=== PATIENT | female | born 1960 | race Caucasian/White ===

== ENCOUNTER 2016-06-21 10:37 | Day surgery (SDC) | payer BC ==
--- NOTE | ~2016-06-21 | EGD ---
EGD REPORT [facility] [address] [place] [address] NAME: IRIS GARCIA : [birth year] [place]US : [place] [facility] [place] [id number] AGE: 56 ADM/REG DATE : 06/21/16 MR#: [id number] REPORT SERV DATE: 06/21/16 DICTATED BY: STEPHANIE BOLANOS DATE: 06/21/16 REPORT STATUS : Draft [facility] DATE: 06/21/16 Endoscopy Center Patient Name: Iris Garcia Date of : 1960 Attending MD: EMMANUEL BOLANOS MD Procedure Date No Time: 06/21/2016 Procedure: Colonoscopy Indications: Iron deficiency anemia Referring MD: DIRK BELL JR. Medicines: See the Anesthesia note for documentation of the administered medications Complications: No immediate complications. Estimated blood loss: None. Procedure: Pre-Anesthesia Assessment: - ASA Grade Assessment: III - A patient with severe systemic disease. - Prior to the procedure, a History and Physical was performed, and patient medications and allergies were reviewed. The patient's tolerance of previous anesthesia was also reviewed. The risks and benefits of the procedure and the sedation options and risks were discussed with the patient. All questions were answered, and informed consent was obtained. Prior Anticoagulants: The patient has taken no previous anticoagulant or antiplatelet agents. After reviewing the risks and benefits, the patient was deemed in satisfactory condition to undergo the procedure. After I obtained informed consent, the scope was passed under direct vision. Throughout the procedure, the patient's blood pressure, pulse, and oxygen saturations were monitored continuously. The PCF H190L [id number] was introduced through the anus with the intention of advancing to the cecum. The scope was advanced to the splenic flexure before the procedure was aborted. Medications were given. Exam to splenic flexure only due to a poor prep The quality of the bowel preparation was poor. Findings: The perianal and digital rectal examinations were normal. Exam terminated at the splenic flexure due to a poor prep Impression: - Preparation of the colon was poor. - Exam terminated at the splenic flexure due to a poor prep EGD REPORT [address] [place]. [address] NAME: IRIS GARCIA : [birth year] [place]US : [place] [facility] [place]#: [id number] AGE: 56 ADM/REG DATE : 06/21/16 MR#: [id number] REPORT SERV DATE: 06/21/16 DICTATED BY: STEPHANIE BOLANOS DATE: 06/21/16 REPORT STATUS : Draft TRANSCRIBED BY: [employer] DATE: 06/21/16 Recommendation: - Patient has a contact number available for emergencies. The signs and symptoms of potential delayed complications were discussed with the patient. Return to normal activities tomorrow. Written discharge instructions were provided to the patient. - Regular diet. - Discharge patient to home. - Repeat colonoscopy as exam was terminated at the splenic flexure due to a poor prep. Procedure Code(s): --- Professional --- 03026, 53, Colonoscopy, flexible, proximal to splenic flexure; diagnostic, with or without collection of specimen(s) by brushing or washing, with or without colon decompression (separate procedure) Diagnosis Code(s): --- Professional --- D50.9, Iron deficiency anemia, unspecified CPT copyright 2013 [employer]. All rights reserved. The codes documented in this report are preliminary and upon dielectric embossing machine operator review may be revised to meet current compliance requirements. EMMANUEL BOLANOS MD 06/21/2016 12:46 PM This report has been signed electronically. Number of Addenda: 0 Note Initiated On: 06/21/2016 12:18 PM Scope Withdrawal Time 0 hours 0 minutes 0 seconds [address] [id number]
--- NOTE | ~2016-06-21 | EGD ---
EGD REPORT [facility] [address] [place] [address] NAME: IRIS GARCIA : 60 STATUS : [place] [facility] [place]#: [id number] AGE: 56 ADM/REG DATE : 06/21/16 MR#: [id number] REPORT SERV DATE: 06/21/16 DICTATED BY: STEPHANIE BOLANOS DATE: 06/21/16 REPORT STATUS : Draft [facility] DATE: 06/21/16 Endoscopy Center Patient Name: Iris Garcia Date of : 1960 Attending MD: EMMANUEL BOLANOS MD Procedure Date No Time: 06/21/2016 Procedure: Upper GI endoscopy Indications: Iron deficiency anemia, Gastro-esophageal reflux disease Referring MD: DIRK BELL JR. Medicines: See the Anesthesia note for documentation of the administered medications Complications: No immediate complications. Estimated blood loss: None. Procedure: Pre-Anesthesia Assessment: - ASA Grade Assessment: III - A patient with severe systemic disease. - Prior to the procedure, a History and Physical was performed, and patient medications and allergies were reviewed. The patient's tolerance of previous anesthesia was also reviewed. The risks and benefits of the procedure and the sedation options and risks were discussed with the patient. All questions were answered, and informed consent was obtained. Prior Anticoagulants: The patient has taken no previous anticoagulant or antiplatelet agents. After reviewing the risks and benefits, the patient was deemed in satisfactory condition to undergo the procedure. After obtaining informed consent, the endoscope was passed under direct vision. Throughout the procedure, the patient's blood pressure, pulse, and oxygen saturations were monitored continuously. The GIF H190 [id number] was introduced through the mouth, and advanced to the second part of duodenum. The upper GI endoscopy was accomplished without difficulty. The patient tolerated the procedure well. Findings: The examined duodenum was normal. Biopsies were taken with a cold forceps for histology. Diffuse mild inflammation characterized by erythema was found in the gastric antrum. Biopsies were taken with a cold forceps for histology. A 3 cm hiatus hernia was present. No other significant abnormalities were identified in a careful examination of the stomach. The cardia and gastric fundus were normal on retroflexion. The examined esophagus was normal. EGD REPORT [address] [address] NAME: IIRS GARCIA : [birth year] STATUS : [place] [facility] [place]#: [id number] AGE: 56 ADM/REG DATE : 06/21/16 MR#: [id number] REPORT SERV DATE: 06/21/16 DICTATED BY: STEPHANIE BOLANOS DATE: 06/21/16 REPORT STATUS : Draft TRANSCRIBED BY: [employer] DATE: 06/21/16 Impression: - Normal examined duodenum. Biopsied. - Gastritis. Biopsied. - Hiatus hernia. - Normal esophagus. Recommendation: - Patient has a contact number available for emergencies. The signs and symptoms of potential delayed complications were discussed with the patient. Return to normal activities tomorrow. Written discharge instructions were provided to the patient. - Regular diet. - Discharge patient to home. - Continue present medications. - Await pathology results. - Discharge patient to home. Procedure Code(s): --- Professional --- 09443, Esophagogastroduodenoscopy, flexible, transoral; with biopsy, single or multiple Diagnosis Code(s): --- Professional --- K29.70, Gastritis, unspecified, without bleeding K44.9, Diaphragmatic hernia without obstruction or gangrene D50.9, Iron deficiency anemia, unspecified K21.9, Gastro-esophageal reflux disease without esophagitis CPT copyright 2013 [employer]. All rights reserved. The codes documented in this report are preliminary and upon wine specialist review may be revised to meet current compliance requirements. EMMANUEL BOLANOS MD 06/21/2016 12:36 PM This report has been signed electronically. Number of Addenda: 0 Note Initiated On: 06/21/2016 12:22 PM Scope Withdrawal Time 0 hours 0 minutes 0 seconds [address] [place] [address]
[~2016-06-21 10:37] MED LIST: CYMBALTA60 PO; DUAVEE PO; EZFE 200200 MG PO; FLEXERIL5 MG PO; KLOR-CON M2020 MEQ PO; MAX25 PO; NIFEDICAL XL30 MG PO; NORCO1 TA1 PO; OTEZLA30 MG PO; PREV30 PO; RELA5 PO; VENTOLIN HFA INH; WELL100 PO; XANAX1 MG PO
== END 2016-06-21 23:59 | disposition home or self-care (01) ==
LOC: DMU 10:37
PROVIDERS: Internal Medicine Gastroenterology
PROC: 0DB68ZX Excision of Stomach, Via Natural or Artificial Opening Endoscopic, Diagnostic (ICD-10-PCS; 2016-06-21)
PROC: 0DJD8ZZ Inspection of Lower Intestinal Tract, Via Natural or Artificial Opening Endoscopic (ICD-10-PCS; principal; 2016-06-21 12:00)
PROC: 0DB98ZX Excision of Duodenum, Via Natural or Artificial Opening Endoscopic, Diagnostic (ICD-10-PCS; 2016-06-21 12:00)
DX: D50.9 Iron deficiency anemia, unspecified (principal); K44.9 Diaphragmatic hernia without obstruction or gangrene; K21.9 Gastro-esophageal reflux disease without esophagitis; E78.00 Pure hypercholesterolemia, unspecified; J45.20 Mild intermittent asthma, uncomplicated; F17.210 Nicotine dependence, cigarettes, uncomplicated; F41.9 Anxiety disorder, unspecified; D64.9 Anemia, unspecified; M19.90 Unspecified osteoarthritis, unspecified site; M85.80 Other specified disorders of bone density and structure, unspecified site; I10 Essential (primary) hypertension; Z88.2 Allergy status to sulfonamides; Z88.5 Allergy status to narcotic agent; Z88.8 Allergy status to other drugs, medicaments and biological substances; Z79.899 Other long term (current) drug therapy; Z79.891 Long term (current) use of opiate analgesic; Z98.890 Other specified postprocedural states; Z98.51 Tubal ligation status; Z98.1 Arthrodesis status
CPT/HCPCS: 88305

== ENCOUNTER 2016-08-02 09:04 | Day surgery (SDC) | payer BC ==
--- NOTE | ~2016-08-02 | EGD ---
EGD REPORT [facility] [address] [place]. [address] NAME: IRIS GARCIA : 60 STATUS : [place] [facility] [place] PAT#: [id number] AGE: 56 ADM/REG DATE : 08/02/16 MR#: [id number] REPORT SERV DATE: 08/02/16 DICTATED BY: STEPHANIE BOLANOS DATE: 08/02/16 REPORT STATUS : Draft [facility] DATE: 08/02/16 Endoscopy Center Patient Name: Iris Garcia Date of : 1960 Attending MD: EMMANUEL BOLANOS MD Procedure Date No Time: 08/02/2016 Procedure: Colonoscopy Indications: Iron deficiency anemia Referring MD: DIRK BELL JR. Medicines: See the Anesthesia note for documentation of the administered medications Complications: No immediate complications. Estimated blood loss: None. Procedure: Pre-Anesthesia Assessment: - ASA Grade Assessment: II - A patient with mild systemic disease. - Prior to the procedure, a History and Physical was performed, and patient medications and allergies were reviewed. The patient's tolerance of previous anesthesia was also reviewed. The risks and benefits of the procedure and the sedation options and risks were discussed with the patient. All questions were answered, and informed consent was obtained. Prior Anticoagulants: The patient has taken no previous anticoagulant or antiplatelet agents. After reviewing the risks and benefits, the patient was deemed in satisfactory condition to undergo the procedure. After I obtained informed consent, the scope was passed under direct vision. Throughout the procedure, the patient's blood pressure, pulse, and oxygen saturations were monitored continuously. The PCF H190L [id number] was introduced through the anus and advanced to the cecum, identified by appendiceal orifice and ileocecal valve. The ileocecal valve, appendiceal orifice and rectum were photographed. The entire colon was examined. The colonoscopy was performed without difficulty. The patient tolerated the procedure well. The quality of the bowel preparation was inadequate. Findings: The perianal and digital rectal examinations were normal. A sessile polyp was found in the sigmoid colon. The polyp was 6 mm in size. The polyp was removed with a cold snare. Resection and retrieval were complete. Non-bleeding internal hemorrhoids were found during retroflexion and were Grade I (internal hemorrhoids that do not prolapse). EGD REPORT [address] [place]. [address] NAME: IRIS GARCIA : 60 STATUS : REG [facility]#: [id number] AGE: 56 ADM/REG DATE : 08/02/16 MR#: [id number] REPORT SERV DATE: 08/02/16 DICTATED BY: STEPHANIE BOLANOS DATE: 08/02/16 REPORT STATUS : Draft [facility] DATE: 08/02/16 No other significant abnormalities were identified in a careful examination of the remainder of the colon. Impression: - Preparation of the colon was inadequate. - One 6 mm polyp in the sigmoid colon. Resected and retrieved. - Non-bleeding internal hemorrhoids. Recommendation: - Patient has a contact number available for emergencies. The signs and symptoms of potential delayed complications were discussed with the patient. Return to normal activities tomorrow. Written discharge instructions were provided to the patient. - Regular diet. - Discharge patient to home. - Continue present medications. - Await pathology results. - Repeat colonoscopy in 1 year for surveillance due to inadequate prep Procedure Code(s): --- Professional --- 40375, Colonoscopy, flexible, proximal to splenic flexure; with removal of tumor(s), polyp(s), or other lesion(s) by snare technique Diagnosis Code(s): --- Professional --- K64.0, First degree hemorrhoids D12.5, Benign neoplasm of sigmoid colon D50.9, Iron deficiency anemia, unspecified CPT copyright 2013 [employer]. All rights reserved. The codes documented in this report are preliminary and upon clinical laboratory manager review may be revised to meet current compliance requirements. EMMANUEL BOLANOS MD 08/02/2016 10:49 AM This report has been signed electronically. Number of Addenda: 0 Note Initiated On: 08/02/2016 10:14 AM Scope Withdrawal Time 0 hours 12 minutes 2 seconds [address] [id number]
== END 2016-08-02 23:59 | disposition home or self-care (01) ==
LOC: DMU 09:04
PROVIDERS: Internal Medicine Gastroenterology
PROC: 0DBN8ZX Excision of Sigmoid Colon, Via Natural or Artificial Opening Endoscopic, Diagnostic (ICD-10-PCS; principal; 2016-08-02 10:30)
DX: K63.5 Polyp of colon (principal); K64.0 First degree hemorrhoids; I10 Essential (primary) hypertension; E78.00 Pure hypercholesterolemia, unspecified; L40.50 Arthropathic psoriasis, unspecified; F41.9 Anxiety disorder, unspecified; F32.9 Major depressive disorder, single episode, unspecified; Z98.51 Tubal ligation status; Z88.2 Allergy status to sulfonamides; Z88.5 Allergy status to narcotic agent; Z88.8 Allergy status to other drugs, medicaments and biological substances; Z98.890 Other specified postprocedural states
CPT/HCPCS: 88305